=== PATIENT | female | born 1980 | race African-American/Black ===

== ENCOUNTER 2023-09-22 11:13 | Emergency (ER) | payer SELFPAY ==
[~2023-09-22] VITALS: Ht 170.2 cm; Wt 86.0 kg
[2023-09-22 11:16] VITALS: TEMP 98; O2SAT 97
[2023-09-22] MEDS: SODIUM CHLORIDE 0.9% 1,000 ML IV ONE (11:30)
[2023-09-22 11:46] LABS: BASOPHILS % 0.6 % (0.0-2.0); EOSINOPHILS % 3.7 % (0.0-5.0); HEMATOCRIT. 41.8 % (36.0-48.0); HEMOGLOBIN. 13.8 g/dL (12.0-16.0); LYMPHOCYTES % 31.1 % (20.0-50.0); MEAN CORPUSCULAR HEMOGLOBIN 27.2 pg (28.0-32.0); MEAN CORPUSCULAR VOLUME 82.4 fL (81.0-99.0); MEAN PLATELET VOLUME 7.8 fl (7.4-10.4); MONOCYTES % 6.8 % (2.0-8.0); NEUTROPHILS % 57.8 % (40.0-76.0); PLATELET 229 x1000/uL (130-400); RED BLOOD CELL COUNT 5.07 mill/uL (4.2-5.4); RED CELL DISTRIBUTION WIDTH 13.6 % (11.6-14.6)
[2023-09-22 11:50] LABS: CHLORIDE 105 mEq/L (98-107); SODIUM 137 mEq/L (136-145)
[2023-09-22 11:51] LABS: CARBON DIOXIDE 26 mEq/L (21-32)
[2023-09-22 11:52] LABS: CALCIUM 10.1 mg/dL (8.7-10.4)
[2023-09-22 11:56] LABS: CREATININE 0.8 mg/dL (0.6-1.0)
[2023-09-22 11:57] LABS: GLUCOSE 95 mg/dL (70-105); UREA NITROGEN BLOOD 6 mg/dL (9-23)
[2023-09-22 11:59] LABS: HCG SCREEN NEGATIVE
[2023-09-22 12:15] LABS: TROPONIN I HIGH SENSITIVITY < 4 ng/L (3.0-34)
[2023-09-22 16:02] VITALS: BP 168/95; PULSE 83; RESP 14
== END 2023-09-22 16:05 | disposition home or self-care (01) ==
LOC: ER 11:13
DX: R55 Syncope and collapse (principal); I10 Essential (primary) hypertension; Z91.013 Allergy to seafood; Z90.49 Acquired absence of other specified parts of digestive tract
CPT/HCPCS: 80048; 84703; 83880; 85025; 85610; 84484; 36415; 93005; 96360; 99284; J7030; Z7610